=== PATIENT | male | born 1950 | race African-American/Black ===

== ENCOUNTER 2020-05-04 04:06 | Inpatient (IN) | payer MEDICARE, OTHER ==
[2020-05-04 04:49] LABS: #Lymphocytes 1.3 thou/uL (1.20-3.40); #Monocytes 0.3 thou/uL (0.11-0.59); #Neutrophils 2.7 thou/uL (1.40-6.50); %Basophils 0.3 % (0.0-1.0); %Eosinophils 1.1 % (0.0-10.0); %Monocytes 6.8 % (0.0-10.0); %Neutrophils 61.8 % (42.0-75.0); Hemoglobin 11.9 g/dL (14.0-18.0); Mean Corpuscular HGB CONC 33.6 g/dL (32.0-36.0); Mean Corpuscular Hemoglobin 32.2 pg (27.0-31.0); Mean Corpuscular Volume 95.8 fL (78.0-98.0); Mean Platelet Volume 7.7 fL (7.4-10.4); Platelet Count 180 thou/uL (130-400); RBC Distribution Width 11.9 % (11.5-14.5); Red Blood Cell (RBC) Count 3.71 mill/uL (4.70-6.10); White Blood Cell (WBC) Count 4.3 thou/uL (4.8-10.8)
[2020-05-04] MEDS ORDERED: cloNIDine 0.1 MG TAB ONE (05:00)
[2020-05-04 05:11] LABS: ALT (SGPT) 23 U/L (8-55); AST (SGOT) 34 U/L (5-34); Albumin 3.4 g/dL (3.4-4.8); Alkaline Phosphatase 61 U/L (40-110); Anion Gap 18 mmol/L (10-20); BUN (Urea Nitrogen) 21 mg/dL (8.4-25.7); Bilirubin, Total 0.9 mg/dL (0.2-1.2); Calc. Creatinine Clearance 0 mL/min (70-130); Calcium 8.9 mg/dL (7.8-10.44); Carbon Dioxide 21 mmol/L (23-31); Chloride 101 mmol/L (98-107); Globulin 4.1 g/dL (2.4-3.5); Glucose 323 mg/dL (83-110); Potassium 4.1 mmol/L (3.5-5.1); Protein, Total 7.5 g/dL (5.8-8.1); Sodium 136 mmol/L (136-145)
[2020-05-04] MEDS ORDERED: Furosemide 40 MG/4 ML VIAL ONE (05:13)
[2020-05-04 05:48] LABS: CKMB 7.7 ng/mL (0-6.6)
[2020-05-04] MEDS ORDERED: Aspirin Chewable 81 MG TAB ONE (05:50)
[2020-05-04 06:09] LABS: SARS-CoV-2 NAA Rapid Test Not Detected (NotDetected)
[2020-05-04] MEDS ORDERED: Enoxaparin Sodium 40 MG/0.4 ML SYRINGE ONE (06:12)
[2020-05-04] MEDS ORDERED: Enoxaparin Sodium 100 MG/ML SYRINGE ONE (06:12)
[2020-05-04] MEDS ORDERED: Ondansetron ODT 4 MG TAB PO PRN (06:26)
[2020-05-04] MEDS ORDERED: Ondansetron PF 4 MG/2 ML Vial IVP PRN (06:26)
--- NOTE | 2020-05-04 06:42 | PDOC.HHP ---
Hospitalist HPI - History of Present Illness Shortness of breath History of Present Illness: This is a 69-year-old male patient with a history of CHF, diabetes mellitus, aortic valve replacement who presents with worsening shortness of breath for the past week. Next patient notes that his doctor took him off Lasix which she has been on for a while due to concerns that his renal function may be getting wo rse. Symptoms started gradually however late yesterday night till today symptoms became severely worse prompting him to come to the ED for further evaluation. He has associated wheezing. He denies any associated chest pain or palpitations. He denies any abdominal pain diarrhea dysuria hematuria polyuria. On arrival his blood pressure was 206/99, pulse 101, saturating 97 on room air, his temperature is 97.9. Labs showed WBC of 4.3, hemoglobin 11.9 and platelets 180. Creatinine was elevated at 1.88 with no baseline file. His glucose was also elevated at 323. Troponin was elevated at 0.062 and BNP was 160. His chest x-ray was concerning for bilateral congestion. He was given aspirin 3 to 4 mg, Lasix 80 mg and clonidine 0.2 mg which significantly improved his symptoms and improved his b lood pressure to systolic in the 170s. Hospitalist team was consulted for admission. Hospitalist ROS - Review of Systems Constitutional: denies: fever, chills, sweats, weakness Respiratory: reports: cough, shortness of breath, SOB with excertion. denies: hemoptysis Cardiovascular: reports: edema. denies: chest pain, palpitations, orthopnea, paroxysmal noc. dyspnea Gastrointestinal: denies: nausea, vomiting, abdominal pain, diarrhea Genitourinary: denies: dysuria, frequency, incontinence Musculoskeletal: denies: neck pain, shoulder pain, arm pain Neurological: denies: weakness, numbness All other systems reviewed; all pertinent +/- noted in HPI/Subj - Medication Medications: Allergies: No known drug allergies. Medications: Patient does not remember his medications, will try ketaminehis pharmacy. - Exam General Appearance: awake alert ENT: normocephalic atraumatic, no oropharyngeal lesions Heart: RRR, no gallops, no rubs, murmur present Respiratory: CTAB, no wheezes, no rales, no ronchi Gastrointestinal: soft, non-tender, non-distended, normal bowel sounds, no palpable masses Extremities: no cyanosis, no clubbing, 1+ LE edema Neurological: cranial nerve grossly intact, no focal deficits Psychiatric: normal affect, normal behavior, A&O x 3 Hospitalist Results - Labs Result Diagrams: 05/04/20 04:24 05/04/20 04:24 Lab results: WBC 4.3 thou/uL (4.8-10.8) L 05/04/20 04:24 Hgb 11.9 g/dL (14.0-18.0) L 05/04/20 04:24 Hct 35.6 % (42.0-52.0) L 05/04/20 04:24 MCV 95.8 fL (78.0-98.0) 05/04/20 04:24 Plt Count 180 thou/uL (130-400) 05/04/20 04:24 Neutrophils % 61.8 % (42.0-75.0) 05/04/20 04:24 Sodium 136 mmol/L (136-145) 05/04/20 04:24 Potassium 4.1 mmol/L (3.5-5.1) 05/04/20 04:24 Chloride 101 mmol/L (98-107) 05/04/20 04:24 Carbon Dioxide 21 mmol/L (23-31) L 05/04/20 04:24 BUN 21 mg/dL (8.4-25.7) 05/04/20 04:24 Creatinine 1.88 mg/dL (0.7-1.3) H 05/04/20 04:24 Glucose 323 mg/dL (83-110) H 05/04/20 04:24 Calcium 8.9 mg/dL (7.8-10.44) 05/04/20 04:24 Total Bilirubin 0.9 mg/dL (0.2-1.2) 05/04/20 04:24 AST 34 U/L (5-34) 05/04/20 04:24 ALT 23 U/L (8-55) 05/04/20 04:24 Alkaline Phosphatase 61 U/L (40-110) 05/04/20 04:24 CK-MB (CK-2) 7.7 ng/mL (0-6.6) H* 05/04/20 04:24 Troponin I 0.062 ng/mL (< 0.028) H 05/04/20 04:24 B-Natriuretic Peptide 160.6 pg/mL (0-100) H 05/04/20 04:24 Serum Total Protein 7.5 g/dL (5.8-8.1) 05/04/20 04:24 Albumin 3.4 g/dL (3.4-4.8) 05/04/20 04:24 Hospitalist H&P A/P - Plan Plan: This is a 69-year-old male patient that history of CHF, diabetes mellitus hypertension presenting with progressive shortness of breath secondary to acute CHF exacerbation. CHF exacerbation EF unknown however has previously been on Lasix and discontinued. Symptoms improved with diuretics 80 mg IV We will continue on diuresis Repeat BMP at noon to monitor renal and electrolyte function Echocardiogram ordered Daily weights Low sodium diet Consider cardiac consult Hypertensive emergency BP to systolic above 200 with heart failure exacerbation BP improved with diuresis and clonidine to SBP in the 170s Patient does not know his home medicationswe will start on amlodipine Await updates from pharmacy. Diabetes mellitus Start correctional insulin. Possible MJ on CKD Reevaluate renal function after dialysis. Monitor BMP -Elevated dimer unclear etiology will order perfusion scan to rule out PE continue lovenox at therapeutic dose for now-120mg/day. discussed with pharmacy CODE STATUSfull code DVT prophylaxisHeparin
[2020-05-04] MEDS ORDERED: hydrALAZINE 20 MG/ML VIAL SLOW IVP PRN (07:22)
[2020-05-04] MEDS ORDERED: Dextrose 5% in Water 1,000 ML IV PRN (07:35)
[2020-05-04] MEDS ORDERED: Dextrose 50% Abboject 50 ML SYRINGE SLOW IVP PRN (07:35)
[2020-05-04] MEDS ORDERED: cloNIDine 0.1 MG TAB PO PRN (07:37)
[2020-05-04 07:56] VITALS: BMI 39.5
--- NOTE | 2020-05-04 08:06 | RAD ---
XR Chest 1 View Portable History: Shortness of breath Comparison: None. Findings: Heart size is enlarged. Abnormal peripheral perihilar opacities. No pneumothorax. Right perihilar surgical clips. No acute osseous abnormality. Possible aortic valve replacement. Impression: Findings which may be related to fibrosis from Covid-19 pneumonia.
[2020-05-04] MEDS: Amlodipine 10 MG TAB PO SCH (08:15)
[2020-05-04] MEDS ORDERED: Enoxaparin Sodium 60 MG/0.6 ML SYRINGE SC SCH (08:30)
[2020-05-04] MEDS ORDERED: Heparin 5,000 UNITS/ML VIAL SC SCH (09:00)
--- NOTE | 2020-05-04 09:14 | PDOC.HOSPP ---
- Subjective Encounter Date: 05/04/20 Encounter Time: 09:00 Subjective: Patient was admitted and evaluated by Dr. Caraballo this morning. He was re- evaluated by this WASHING MACHINE OPERATOR after he got to his room on Tele. He reports feeling much better after the lasix. He reports being taken off his lasix regimen after having Covid in August because he was dehydrated and they wanted to protect his kidneys. He states "i knew I should probably be back on it". Also reports a high-salt meal yesterday of Spam and Ham. He states he realizes that may have something to do with his symptoms. - Objective Vital Signs & Weight: Vital Signs (12 hours) Temp Pulse Resp BP Pulse Ox 05/04/20 07:49 97.7 F 97 18 186/84 H 98 Weight Weight 136 kg Result Diagrams: 05/04/20 04:24 05/04/20 04:24 Additional Labs: Accuchecks 05/04/20 07:53 POC Glucose 307 H Hospitalist ROS - Review of Systems Constitutional: denies: fever, chills, sweats, weakness, malaise, other Eyes: denies: pain, vision change, conjunctivae inflammation, eyelid inflammation, redness, other ENT: denies: ear pain, ear discharge, nose pain, nose discharge, nose congestion, mouth pain, mouth swelling, throat pain, throat swelling, other Respiratory: reports: shortness of breath, SOB with excertion Cardiovascular: reports: orthopnea, edema. denies: chest pain Gastrointestinal: denies: nausea, vomiting, abdominal pain, diarrhea, constipation, melena, hematochezia, other Musculoskeletal: denies: neck pain, shoulder pain, arm pain, back pain, hand pa in, leg pain, foot pain, other Skin: denies: rash, lesions, alberto, bruising, other Neurological: denies: weakness, numbness, incoordination, change in speech, confusion, seizures, other - Medication Medications: Active Medications Generic Name Dose Route Start Last Admin Trade Name Freq PRN Reason Stop Dose Admin Amlodipine Besylate 10 mg 05/04/20 09:00 05/04/20 08:15 Amlodipine 10 Mg Tab PO 10 mg DAILY DAWSON Administration Sodium Chloride 10 ml 05/04/20 09:00 05/04/20 08:15 Flush - Normal Saline 10 Ml Syringe IVF 10 ml Q12HR DAWSON Administration - Exam Eye: PERRL, anicteric sclera ENT: normocephalic atraumatic Neck: supple, no lymphadenopathy Heart: RRR, normal peripheral pulses Respiratory: CTAB, normal chest expansion Gastrointestinal: soft, non-tender Extremities: 1+ LE edema Skin: normal turgor Neurological: cranial nerve grossly intact Musculoskeletal: normal tone, normal strength Psychiatric: normal affect, A&O x 3 Hosp A/P (1) Hypertensive urgency Code(s): I16.0 - HYPERTENSIVE URGENCY Status: Acute Plan: Restart his home medication; titrate medications as needed (2) Acute exacerbation of CHF (congestive heart failure) Code(s): I50.9 - HEART FAILURE, UNSPECIFIED Status: Acute Plan: Echo, lasix, cardiology consult (3) Diabetes mellitus Code(s): E11.9 - TYPE 2 DIABETES MELLITUS WITHOUT COMPLICATIONS Status: Chronic (4) [id number] kidney injury Code(s): N17.9 - ACUTE KIDNEY FAILURE, UNSPECIFIED; N18.9 - CHRONIC KIDNEY DISEASE, UNSPECIFIED Status: Suspected - Plan #Echo and Cardiology consult are pending Will recheck labs in AM Accuchecks and SS for coverage Monitor BP and can add additional medication as needed DVT and PUD prevention Continue Dr. Caraballo's plan as outlined in H&P
[2020-05-04] MEDS ORDERED: Enoxaparin Sodium 30 MG/0.3 ML SYRINGE SC SCH (10:00)
[2020-05-04] MEDS: HumaLOG 300 UNITS/3 ML VIAL SC PRN ×2 (10:24→17:30)
--- NOTE | 2020-05-04 10:54 | NM ---
Radionucleotide perfusion lung scan HISTORY: Dyspnea. FINDINGS: Only perfusion scan performed. Ventilation scan not performed as per current protocol (COVI D). There is heterogeneous uptake of radiotracer throughout each lung. No segmental or subsegmental defec ts evident. IMPRESSION : No evidence of pulmonary embolus.
[2020-05-04 11:58] LABS: Troponin I 0.072 ng/mL (< 0.028)
[2020-05-04 12:04] LABS: Calcium 9.1 mg/dL (7.8-10.44); Chloride 99 mmol/L (98-107); Potassium 3.6 mmol/L (3.5-5.1); Sodium 136 mmol/L (136-145)
[2020-05-04 12:05] LABS: Glucose 244 mg/dL (83-110)
[2020-05-04 12:07] LABS: Anion Gap 15 mmol/L (10-20); Carbon Dioxide 26 mmol/L (23-31)
[2020-05-04 12:08] LABS: Calc. Creatinine Clearance 76 mL/min (70-130)
[2020-05-04 12:09] LABS: BUN (Urea Nitrogen) 21 mg/dL (8.4-25.7)
--- NOTE | 2020-05-04 12:30 | CON ---
DATE OF CONSULTATION: HISTORY OF PRESENT ILLNESS: The patient is a pleasant 69-year-old gentleman with his aortic valve replacement, who presents with increasing dyspnea and lower extremity swelling. The patient states that 4 years ago, he underwent aortic valve replacement. He reports that at that time he was found to have no significant coronary artery disease. The patient reports that he does have a history of congestive heart failure. His community service technician took him off Lasix about 6 months ago apparently due to worsening renal insufficiency. The patient presented with increasing dyspnea and lower extremity swelling. The patient denied having any chest discomfort. PAST MEDICAL HISTORY: 1. Congestive heart failure. 2. Aortic valve replacement. 3. Renal insufficiency. 4. Diabetes mellitus. 5. Hypertension. 6. Sleep apnea. PAST SURGICAL HISTORY: Aortic valve replacement, and cholecystectomy. MEDICATIONS: 1. Metformin 1000 b.i.d. 2. Aspirin 81 daily. 3. Insulin. ALLERGIES: CIPROFLOXACIN. FAMILY HISTORY: There is a positive family history of coronary artery disease. REVIEW OF SYSTEMS: Ten-point system otherwise unremarkable. No history of easy bruising or bleeding or bright red blood per rectum. PHYSICAL EXAMINATION: GENERAL: Obese gentleman, in no acute distress. VITAL SIGNS: Blood pressure of 152/78. NECK: No jugular venous distention. LUNGS: Clear to auscultation. HEART: Regular rate and rhythm. Normal S1 and S2 with a 1/6 systolic murmur. ABDOMEN: Distended. EXTREMITIES: Showed moderate bilateral edema. VASCULAR: Radial pulses 2+. LABORATORY DATA: Sodium 136, potassium 4.1, chloride 101, bicarb 21, BUN 21, creatinine 1.8. Troponin was 0.062. BNP 160. White blood cell count 4.3, hemoglobin 11.9, hematocrit 35.6, and platelets are 180. EKG sinus tachycardia with first-degree AV block, no acute ST-T wave changes. IMPRESSION: 1. Congestive heart failure, probably secondary to diastolic dysfunction. 2. History of aortic valve replacement. 3. History of COVID. 4. Diabetes mellitus. 5. Renal insufficiency. 6. Sleep apnea. 7. Morbid obesity. This gentleman presents with congestive heart failure. He did have COVID pneumonia earlier this year. From a cardiac standpoint, we will check the patient's echocardiogram. The patient being diabetic, should be on lipid-lowering medication. We will follow this patient with you through his hospitalization. Job ID: [id number] [facility]
[2020-05-04] MEDS: metFORMIN 500 MG TAB PO SCH (17:30)
[2020-05-04] MEDS ORDERED: Insulin Glargine 28 UNITS in Pre-Filled Syringe 1 EACH SC SCH (21:00)
[2020-05-04] MEDS ORDERED: Melatonin 3 MG TAB PO SCH (21:00)
[2020-05-04] MEDS ORDERED: Loratadine 10 MG TAB PO SCH (21:00)
[2020-05-04] MEDS ORDERED: Metoprolol Tartrate 50 MG TAB PO SCH (21:00)
[2020-05-04] MEDS ORDERED: Terazosin HCl 5 MG CAP PO SCH (21:00)
[2020-05-04] MEDS ORDERED: Atorvastatin Calcium 20 MG TAB PO SCH (21:00)
[2020-05-04] MEDS: Ketotifen Fumarate 0.025% Ophth Soln 5 ml Bottle EA EYE SCH (21:04)
[2020-05-05 04:05] LABS: #Basophils 0.1 thou/uL (0.0-0.2); #Eosinphils 0.1 thou/uL (0.0-0.7); #Lymphocytes 1.8 thou/uL (1.20-3.40); #Monocytes 0.4 thou/uL (0.11-0.59); #Neutrophils 1.6 thou/uL (1.40-6.50); %Basophils 1.3 % (0.0-1.0); %Eosinophils 1.6 % (0.0-10.0); %Monocytes 11.1 % (0.0-10.0); Hemoglobin 11.2 g/dL (14.0-18.0); Mean Corpuscular HGB CONC 32.5 g/dL (32.0-36.0); Mean Corpuscular Hemoglobin 30.8 pg (27.0-31.0); Mean Corpuscular Volume 94.7 fL (78.0-98.0); Mean Platelet Volume 7.6 fL (7.4-10.4); Platelet Count 190 thou/uL (130-400); RBC Distribution Width 11.9 % (11.5-14.5); Red Blood Cell (RBC) Count 3.65 mill/uL (4.70-6.10)
[2020-05-05 04:26] LABS: Anion Gap 13 mmol/L (10-20); BUN (Urea Nitrogen) 19 mg/dL (8.4-25.7); Calc. Creatinine Clearance 75 mL/min (70-130); Calcium 8.8 mg/dL (7.8-10.44); Carbon Dioxide 29 mmol/L (23-31); Chloride 99 mmol/L (98-107); Glucose 145 mg/dL (83-110); Potassium 3.5 mmol/L (3.5-5.1); Sodium 137 mmol/L (136-145)
[2020-05-05] MEDS: HumaLOG 300 UNITS/3 ML VIAL SC PRN (05:59)
[2020-05-05 07:46] VITALS: BP 157/76; TEMP 97.7
[2020-05-05] MEDS: metFORMIN 500 MG TAB PO SCH (08:50)
[2020-05-05] MEDS: Amlodipine 10 MG TAB PO SCH (08:50)
[2020-05-05] MEDS: Ketotifen Fumarate 0.025% Ophth Soln 5 ml Bottle EA EYE SCH (08:51)
[2020-05-05] MEDS ORDERED: Furosemide 40 MG/4 ML VIAL SLOW IVP SCH (09:00)
[2020-05-05] MEDS ORDERED: Aspirin 81 mg Enteric Coated Tablet PO SCH (09:00)
[2020-05-05] MEDS ORDERED: Enoxaparin Sodium 40 MG/0.4 ML SYRINGE SC SCH (09:00)
[2020-05-05] MEDS ORDERED: Losartan 25 MG TAB PO SCH (09:00)
[2020-05-05] MEDS ORDERED: Mometasone 100 MCG/Formoterol 5 MCG 120 PUFF INHALER INH SCH (18:30)
--- NOTE | 2020-05-06 09:25 | DIS ---
DATE OF ADMISSION: 05/04/2020 DATE OF DISCHARGE: 05/05/2020 PRIMARY CARE PHYSICIAN: DOREEN in [place]. CONSULTANTS: Dr. Balbuena, Cardiology. PROCEDURES: 1. The patient had an echocardiogram, which showed an EF of 40% to 50%; mildly dilated left atrium; moderate concentric left ventricular hypertrophy; normally functioning bioprosthetic valve in aortic position. 2. The patient had a lung nuclear med scan, which showed no evidence of a pulmonary emboli. 3. The patient also had a chest x-ray, which showed findings that may be related to fibrosis from COVID-19 pneumonia. ALLERGIES: CIPRO. MEDICATIONS: We will continue: 1. Tylenol 500 mg p.o. b.i.d. p.r.n. 2. Aspirin 81 mg p.o. daily. 3. Losartan 100 mg p.o. daily. 4. Flovent Diskus 50 mcg one inhalation daily. 5. Metformin 1000 mg p.o. b.i.d. 6. Ketotifen 0.025% ophthalmic solution one drop each eye b.i.d. 7. Lantus 28 units subcutaneously at bedtime. 8. Loratadine 10 mg p.o. at bedtime. 9. Melatonin 6 mg p.o. at bedtime. 10. Pravastatin 40 mg p.o. at bedtime. 11. Terazosin 10 mg p.o. at bedtime. 12. Vitamin B12 of 1000 mcg p.o. daily. 13. We will add Lasix 40 mg p.o. daily. 14. Norvasc 10 mg daily. 15. We will change his metoprolol to 50 mg p.o. b.i.d. SUMMARY OF CARE: Mr. Platt was admitted through the emergency room on 05/04 with chief complaint of shortness of breath and hypertension. He reported that it had started several hours prior to evaluation in the emergency room. Reports that he had COVID-19 pneumonia in August, and at that time, he was taken off his Lasix and he noted that his bilateral lower extremities were swelling more than normal and he had eaten a meal the previous day that was high in salt content. He was admitted to telemetry. Procedures as above. He was seen by Cardiology, Dr. Balbuena, who recommended to continue the Lasix and his statin. His echocardiogram was reviewed and Dr. Balbuena recommended that he get back on the Lasix and then follow up with his primary care and web content producer in [place]. The patient's vital signs have remained stable. Laboratory work is stable. The patient feels much better after IV Lasix. Reports that he was able to walk down the [place]a without any significant shortness of breath and is requesting to go home. DISPOSITION INSTRUCTIONS: The patient should follow up with the physician at the [place] in the next 7 to 10 days and his web content producer as well. There are 3 new prescriptions. We talked about that prior to discharge. He was examined prior to discharge and remained stable. The patient was given a paper prescription as he says that his [place] pharmacy does not take electronic prescriptions. He was also instructed that if he had any more worrisome symptoms that he was to go to the local emergency room and he will be discharged in stable condition and will be discharged home. Job ID: [id number]
== END 2020-05-05 10:57 | disposition home or self-care (01) | DRG 291 ==
LOC: ERS 04:06 → 2NO 06:02
PROVIDERS: ADMIT Student in an Organized Health Care Education/Training Program; ATTEND Student in an Organized Health Care Education/Training Program
DX: I13.0 Hypertensive heart and chronic kidney disease with heart failure and stage 1 through stage 4 chronic kidney disease, or unspecified chronic kidney disease (principal); I50.33 Acute on chronic diastolic (congestive) heart failure; I16.1 Hypertensive emergency; N17.9 Acute kidney failure, unspecified; Z20.828 Contact with and (suspected) exposure to other viral communicable diseases; E11.22 Type 2 diabetes mellitus with diabetic chronic kidney disease; E66.01 Morbid (severe) obesity due to excess calories; G47.33 Obstructive sleep apnea (adult) (pediatric); E78.5 Hyperlipidemia, unspecified; Z95.2 Presence of prosthetic heart valve; Z88.1 Allergy status to other antibiotic agents; Z79.899 Other long term (current) drug therapy; Z68.39 Body mass index [BMI] 39.0-39.9, adult
CPT/HCPCS: 0240U; 36415; 36416; 71045; 78451; 80048; 80053; 82553; 83880; 84484; 85025; 85379; 93005; 93306; 93798; A9540; J1650; J1815; J1940